=== PATIENT | male | born 1975 | race Caucasian/White ===

== ENCOUNTER 2021-03-02 22:23 | Inpatient (IN) | payer OTHER ==
[~2021-03-02] VITALS: Ht 167.6 cm; Wt 77.6 kg
[2021-03-02 23:45] VITALS: BP 115/69
--- NOTE | 2021-03-02 23:45 | NUR ---
CHARGE COORDINATORCOOK MANAGER NOTE PATIENT IS A DIRECT ADMIT FROM [facility]. PATIENT AMBULATED TO BED WITH NONPRODUCTIVE COUGH AND SOB, GAIT IS STEADY. A/OX4. ON OXYGEN 4L/MIN VIA NASAL CANNULA O2 SAT 96%. RESPIRATIONS ARE EVEN AND UNLABORED. PATIENT IS EXPERIENCING NONPRODUCTIVE COUGH. NO C/O PAIN AT THIS TIME. EXTERNAL TELE READS SINUS RHYTHM HR 85. IN NO APPARENT DISTRESS. IV ACCESS IN LAC#20 PATENT AND SALINE LOCKED. INITIAL PHYSICAL ASSESSMENT COMPLETED AT THIS TIME. SKIN ASSESSMENT COMPLETED, SKIN INTACT. PATIENT DENIES SIGNIFICANT PAST MEDICAL HISTORY AND STATES DOES NOT TAKEN ANY HOME MEDS. BED IS LOW AND LOCKED, HOB ELEVATED IN SEMI FOWLERS, SIDE RIAL UPX2, HUYEN LIGHT WITHIN REACH, INFORMED ON USE. WILL CONTINUE TO MONITOR THROUGHOUT SHIFT.
[2021-03-03] MEDS ORDERED: ENOXAPARIN SODIUM 40 MG/0.4 ML DISP.SYRIN SQ SCH
[2021-03-03] MEDS ORDERED: ACETAMINOPHEN 325 MG TABLET PO PRN
[2021-03-03] MEDS ORDERED: MAGNESIUM HYDROXIDE 30 ML UDC PO PRN
[2021-03-03] MEDS ORDERED: MAG HYDROX/AL HYDROX/SIMETH 30 ML UDC PO PRN
[2021-03-03] MEDS ORDERED: CEFTRIAXONE 1 G in IV D5W 50 ML IV SCH (00:30)
[2021-03-03] MEDS ORDERED: AZITHROMYCIN 500 MG VIAL ONE (00:48)
--- NOTE | 2021-03-03 00:55 | NUR ---
RN NOTE INFORMED JULISA HURT CRATE ICER THAT PATIENT HAS ALREADY RECEIVED ROCEPHIN 1GM AT [facility] AT 1800, ORDER IS FOR Q24HR. CRATE ICER STATED TO FOLLOW Q24HR. [facility] CALLED AND INFORMED. TO CHANGE TO 1800.
[2021-03-03] MEDS ORDERED: BENZONATATE 100 MG CAPSULE PO PRN (01:00)
[2021-03-03] MEDS: AZITHROMYCIN 500 MG in IV D5W 250 ML IV SCH ×2 (01:01→23:40)
[2021-03-03 04:00] VITALS: BP 122/75
[2021-03-03] MEDS: ONDANSETRON HCL/PF 4 MG/2 ML VIAL IVP PRN (06:09)
--- NOTE | 2021-03-03 07:21 | NUR ---
RN NOTE PATIENT RESTING IN BED. A/OX4. ON OXYGEN 12L/MIN VIA NONREBREATHER, SATING 99%. PATIENT DID HAVE AN EPISODE OF DESATURATION WHEN AMBULATING TO THE BATHROOM WHICH INITIATED THE NONREBREATHER, TRIED TITRATING THROUGHOUT SHIFT BUT PATIENT HAD A COUGHING EPISODE AND HAD TO RE-UP THE OXYGEN. URINAL GIVEN TO PATIENT. NO C/O PAIN THROUGHOUT SHIFT. PATIENT DID HAVE AN EPISODE OF GREEN EMESIS, ZOFRAN GIVEN. TELE MONITOR READS SINUS RHYTHM. NO DISTRESS. IV ACCESS MAINTAINED IN LAC#20. BED REMAINS LOW AND LOCKED, HOB ELEVATED IN SEMI FOWLERS, SIDE RIAL UPX2, HUYEN LIGHT WITHIN REACH, . WILL ENDORSE TO ONCOMING SHIFT.
[2021-03-03 07:39] LABS: CALCIUM, SERUM 7.9 mg/dL (8.5-10.1); CREATININE 0.8 mg/dL (0.6-1.3); PHOSPHORUS 2.8 mg/dL (2.5-4.9); POTASSIUM 3.5 mmol/L (3.5-5.1)
[2021-03-03 07:40] LABS: ABG BASE EXCESS 0.8 mmol/L; ABG OXYGEN SATURATION 94.5 % (92.0-98.5); ABG PH 7.449 (7.350-7.450); ABG PO2 70.6 mmHg (75.0-100.0); MetHb 0.2 % (0.0-1.5); O2Hb 94.3 % (94.0-97.0); SITE, ABG Right Radial; VENT MODE, BG NON-REBREATHER
[2021-03-03 07:56] LABS: BASOPHILS % (AUTO) 0.3 % (0.0-2.0); EOSINOPHILS % (AUTO) 0.1 % (0.0-6.0); HEMATOCRIT 39 % (39-51); HEMOGLOBIN 13.1 g/dL (13.5-17.5); LYMPHOCYTES # (AUTO) 0.8 K/uL (0.8-4.8); LYMPHOCYTES % (AUTO) 20.5 % (20.0-44.0); MEAN CORPUSCULAR HGB CONC 34 g/dl (31.0-36.0); MEAN CORPUSCULAR VOLUME 91 fL (80-96); MONOCYTES # (AUTO) 0.6 K/uL (0.1-1.30); MONOCYTES % (AUTO) 14.3 % (2.0-12.0); NEUTROPHILS # (AUTO) 2.7 K/uL (1.8-8.9); NEUTROPHILS % (AUTO) 64.8 % (43.0-81.0); PLATELET COUNT (AUTO) 206 K/uL (150-450); RED BLOOD CELL COUNT(AUTO) 4.24 MIL/uL (4.5-6.0); WHITE BLOOD COUNT (AUTO) 4.1 K/uL (4.3-11.0)
[2021-03-03] MEDS: PANTOPRAZOLE 40 MG TABLET.DR PO SCH (08:44)
[2021-03-03] MEDS: ASCORBIC ACID 500 MG TABLET PO SCH (08:44)
[2021-03-03] MEDS: ZINC SULFATE 220 MG CAPSULE PO SCH (08:44)
[2021-03-03] MEDS: DEXAMETHASONE SOD PHOSPHATE 10 MG/ML VIAL IV SCH (08:44)
[2021-03-03] MEDS ORDERED: REMDESIVIR (CHARGED) 200 MG, *LOADING DOSE 1 EA in IV NS 0.9% 210 ML IV ONE (09:30)
[2021-03-03] MEDS: ENOXAPARIN SODIUM 40 MG/0.4 ML DISP.SYRIN SQ SCH ×2 (10:11→20:43)
[2021-03-03 11:46] LABS: ALANINE AMINOTRANSFERASE 36 U/L (12-78); ALBUMIN 2.6 g/dL (3.4-5.0); ALKALINE PHOSPHATASE 37 U/L (46-116); ASPARTATE AMINOTRANSFERASE 43 U/L (15-37); BILIRUBIN,DIRECT 0.1 mg/dL (0.0-0.2); BILIRUBIN,TOTAL 0.4 mg/dL (0.2-1.0); TOTAL PROTEIN, SERUM 6.7 g/dL (6.4-8.2)
[2021-03-03 13:35] LABS: FERRITIN 960 ng/mL (8-388)
[2021-03-03] MEDS: CEFTRIAXONE 1 G in IV D5W 50 ML IV SCH (18:06)
--- NOTE | 2021-03-03 19:50 | NUR ---
RN OPENING NOTES RECD PT IN BED, A/O X4, KAZAKH SPEAKING, UNDERSTANDS CHINESE ABLE TO MAKE NEEDS KNOWN. PT IS ON 10L OF SIMPLE MASK AT THIS TIME, NO SOB NOTED NO RESP DISTRESS. PT IS ON TELE MONITORING PRESENTS WITH NSR HR IN 80S. PT HAS IV LAC, FLUSHED, PT EXPLAINS HE IS AMBULATORY, BUT GIVEN PT HX ENDORSEMENT OF DESATURATING WHILE AMBULATING, EDUCATED PT ON RISKS AND BENEFITS TO STAYING IN BED FOR SAFETY. ENCOURAGED TO USE URINAL. EDUCATED PT ON USING CALL LIGHT FOR ASSISTANCE. PT VERBALIZES UNDERSTANDING. ALL NEEDS ATTENDED AT THIS TIME. PT DENIES PAIN. SAFETY MEASURES IN PLACE HOB ELEVATED. SIDE RAILS UP X2 BED LOCKED IN LOWEST POSITION WITH BED ALARM ON, CALL LIGHT WITHIN REACH. WILL CONT TO MONITOR THROUGHOUT SHIFT CLOSELY.
[2021-03-03 20:00] VITALS: BP 108/66
[2021-03-03] MEDS: REMDESIVIR (CHARGED) 100 MG in IV NS 0.9% 100 ML IV SCH (20:41)
--- NOTE | 2021-03-03 23:00 | NUR ---
RN NOTE PT NOTED TO BE ASLEEP, NO DISTRESS NOTED. PLACED ON 12L NRB PER RT, PT SATURATING 96% AT THIS TIME. TOLERATING WELL. WILL CONT TO CLOSELY MONITOR.
[2021-03-04] VITALS: BP 100/63
[2021-03-04 04:00] VITALS: BP 108/60
[2021-03-04 06:54] LABS: BASOPHILS % (AUTO) 0.1 % (0.0-2.0); HEMATOCRIT 39 % (39-51); HEMOGLOBIN 13.5 g/dL (13.5-17.5); LYMPHOCYTES # (AUTO) 0.9 K/uL (0.8-4.8); LYMPHOCYTES % (AUTO) 23.1 % (20.0-44.0); MEAN CORPUSCULAR HGB CONC 34 g/dl (31.0-36.0); MEAN CORPUSCULAR VOLUME 90 fL (80-96); MONOCYTES # (AUTO) 0.8 K/uL (0.1-1.30); MONOCYTES % (AUTO) 20.1 % (2.0-12.0); NEUTROPHILS # (AUTO) 2.1 K/uL (1.8-8.9); NEUTROPHILS % (AUTO) 56.7 % (43.0-81.0); PLATELET COUNT (AUTO) 275 K/uL (150-450); RED BLOOD CELL COUNT(AUTO) 4.37 MIL/uL (4.5-6.0); WHITE BLOOD COUNT (AUTO) 3.8 K/uL (4.3-11.0)
--- NOTE | 2021-03-04 07:04 | NUR ---
RN CLOSING NOTE PT IS ON 15L VIA NON REBREATHER MASK AT THIS TIME, NO DISTRESS NOTED, NO SOB. PT O2 SATURATION IS 92 AT THIS TIME. ALL NEEDS ATTENDED. ALL DUE MEDS GIVEN. PT DENIES PAIN. PT HR IS IN THE 70S AT THIS TIME. NSR. SAFETY MEASURES IN PLACE. HOB. ELEVATED. SIDE RAILS UP X2 BED LOCKED IN LOWEST POSITION. CALL LIGHT WITHIN, WILL ENDORSE TO DAY SHIFT RN, FOR CONTINUATION OF CARE.
[2021-03-04 07:19] LABS: ALBUMIN 2.6 g/dL (3.4-5.0); BILIRUBIN,DIRECT 0.1 mg/dL (0.0-0.2); BILIRUBIN,TOTAL 0.3 mg/dL (0.2-1.0); CALCIUM, SERUM 8.6 mg/dL (8.5-10.1); CREATININE 0.8 mg/dL (0.6-1.3); POTASSIUM 4.1 mmol/L (3.5-5.1); TOTAL PROTEIN, SERUM 6.9 g/dL (6.4-8.2)
[2021-03-04] MEDS: PANTOPRAZOLE 40 MG TABLET.DR PO SCH (07:45)
--- NOTE | 2021-03-04 07:52 | NUR ---
RN OPENING NOTES RECEIVED PATIENT IS ON BED SLEEPING EASILY AWAKEN BY NAME AND LIGHT TOUCH, ALERT AND ORIENTED X4. PATIENT IS ON 15L OXYGEN VIA NON REBREATHER MASK TOLERATING WELL. PATIENT IN NO APPARENT RESPIRATORY DISTRESS NOTED. NO COMPLAINED OF PAIN AT THIS TIME. WILL CONTINUE TO MONITOR.
[2021-03-04 08:00] VITALS: BP 108/69
[2021-03-04] MEDS: ASCORBIC ACID 500 MG TABLET PO SCH (08:13)
[2021-03-04] MEDS: ZINC SULFATE 220 MG CAPSULE PO SCH (08:13)
[2021-03-04] MEDS: DEXAMETHASONE SOD PHOSPHATE 10 MG/ML VIAL IV SCH (08:14)
[2021-03-04] MEDS: ONDANSETRON HCL/PF 4 MG/2 ML VIAL IVP PRN (08:27)
--- NOTE | 2021-03-04 08:30 | NUR ---
RN NOTES PATIENT COMPLAINED OF NAUSEA ZOFRAN 4MG IV WAS GIVEN WILL CONTINUE TO MONITOR.
[2021-03-04] MEDS: ENOXAPARIN SODIUM 40 MG/0.4 ML DISP.SYRIN SQ SCH ×2 (08:42→21:43)
--- NOTE | 2021-03-04 09:00 | NUR ---
RN NOTES PATIENT SA02 88% WITH DIFFICULTY BREATHING 15L OXYGEN VIA NON REBREATHER MASK CHANGED TO HIGH FLOW OXYGEN 40LPM 100% O2 BY MULTIMEDIA SERVICES MANAGER. LATEST SA02 97%. WILL CONTINUE TO MONITOR.
[2021-03-04 12:00] VITALS: BP 113/70
[2021-03-04 16:00] VITALS: BP 99/63
[2021-03-04] MEDS: CEFTRIAXONE 1 G in IV D5W 50 ML IV SCH (17:08)
--- NOTE | 2021-03-04 19:19 | NUR ---
TELE/RN CLOSING NOTES PATIENT IS ON BED SLEEPING EASILY AWAKEN BY NAME AND LIGHT TOUCH ALERT AND ORIENTED X4. PATIENT IS ON HIGH FLOW OXYGEN TOLERATING WELL. PATIENT IN NO APPARENT RESPIRATORY DISTRESS NOTED. NO COMPLAINED OF PAIN AT THIS TIME. TELE MONITOR READING SUNE RHYTHM 89 BPM. SEEN AND EXAMINED BY MD WITH ORDERS MADE AND CARRIED OUT. ALL DUE MEDICATIONS WAS GIVEN. IV ACCESS AT LEFT AC #20G PATENT AND INTACT. SAFETY PRECAUTION WAS IN PLACED. BED IN LOWEST POSITION AND LOCKED. SIDE RAILS UP X2. WILL ENDORSED TO ECONOMIST RESEARCH ASSISTANT FOR ANITA.
--- NOTE | 2021-03-04 19:54 | NUR ---
wood mechanist Opening Notes Patient was last seen sleeping in bed. Patient's alert and oriented x4. Patient's on high flow oxygen with no respiratory distress noted. Patient's connected to a tele monitor with no cardiac distress noted. Patient has a saline lock on her LAC G#20 which is intact, patent, and flushing well. Patient's in no acute distress at this time. Safety measures in place: Bed locked, side rails up x2, and call light within reach. Will continue to monitor the patient.
[2021-03-04 20:00] VITALS: BP 108/63
[2021-03-04] MEDS: REMDESIVIR (CHARGED) 100 MG in IV NS 0.9% 100 ML IV SCH (21:55)
[2021-03-04] MEDS: AZITHROMYCIN 500 MG in IV D5W 250 ML IV SCH (23:53)
[2021-03-05] VITALS: BP 106/71
[2021-03-05 04:00] VITALS: BP 110/68
--- NOTE | 2021-03-05 06:20 | NUR ---
DIRECTOR MEDICAL Notes Patient refused all AM labs to be drawn this morning. Risks of refusing labs to be drawn were explained to the patient.
--- NOTE | 2021-03-05 06:47 | NUR ---
heeler machine Closing Notes Patient was last seen awake in bed resting. Patient's alert and oriented x4. Patient's on high flow oxygen (40L/min) with no respiratory distress noted. Patient's connected to a tele monitor showing sinus rhythm with a heart rate of 77bpm. Patient has a saline lock on his LAC G#20 which is intact, patent, and flushing well. Patient's in no acute distress at this time. Safety measures in place: Bed locked, side rails up x2, and call light within reach. Will endorse care to the day shift nurse.
--- NOTE | 2021-03-05 07:05 | NUR ---
RN NOTE PATIENT AWAKE ALERT AND ORIENTED X4, STATED THAT HE WILL HAVE HIS BLOOD DRAWN FOR AM LAB AFTER BREAKFAST, LABORATORY MADE AWARE, ON HIGH FLOW AT 40% O2 SAT OF 100%, COVID PRECAUTION OBSERVED CONTINENT ON BOWEL AND BLADDER USES THE URINAL, ABLE TO MAKE NEEDS KNOWN, CALL LIGHT WITHIN REACH, BED WHEELS LOCK, BED ALARM ON, WILL CONTINUE TO MONITOR PATIENT. Addendum: 03/05/21 at 1248 by TARAS RODRIGUEZ RN ON TELE MONITOR SR HR OF 71.
[2021-03-05 08:00] VITALS: BP 111/69
[2021-03-05] MEDS: PANTOPRAZOLE 40 MG TABLET.DR PO SCH (08:10)
[2021-03-05 09:20] LABS: BASOPHILS % (AUTO) 0.1 % (0.0-2.0); EOSINOPHILS % (AUTO) 0.1 % (0.0-6.0); HEMATOCRIT 39 % (39-51); HEMOGLOBIN 13.4 g/dL (13.5-17.5); LYMPHOCYTES # (AUTO) 1.4 K/uL (0.8-4.8); MEAN CORPUSCULAR HGB CONC 34 g/dl (31.0-36.0); MEAN CORPUSCULAR VOLUME 89 fL (80-96); MONOCYTES # (AUTO) 0.7 K/uL (0.1-1.30); MONOCYTES % (AUTO) 9.2 % (2.0-12.0); NEUTROPHILS # (AUTO) 5.9 K/uL (1.8-8.9); NEUTROPHILS % (AUTO) 73.6 % (43.0-81.0); PLATELET COUNT (AUTO) 312 K/uL (150-450); RED BLOOD CELL COUNT(AUTO) 4.37 MIL/uL (4.5-6.0)
[2021-03-05] MEDS: ENOXAPARIN SODIUM 40 MG/0.4 ML DISP.SYRIN SQ SCH ×2 (09:42→22:17)
[2021-03-05] MEDS: DEXAMETHASONE SOD PHOSPHATE 10 MG/ML VIAL IV SCH (09:43)
[2021-03-05] MEDS: ASCORBIC ACID 500 MG TABLET PO SCH (09:43)
[2021-03-05] MEDS: ZINC SULFATE 220 MG CAPSULE PO SCH (09:43)
[2021-03-05 09:49] LABS: ALBUMIN 2.6 g/dL (3.4-5.0); BILIRUBIN,DIRECT 0.1 mg/dL (0.0-0.2); BILIRUBIN,TOTAL 0.4 mg/dL (0.2-1.0); CALCIUM, SERUM 8.3 mg/dL (8.5-10.1); CREATININE 0.8 mg/dL (0.6-1.3); POTASSIUM 3.5 mmol/L (3.5-5.1); TOTAL PROTEIN, SERUM 6.6 g/dL (6.4-8.2)
--- NOTE | 2021-03-05 11:30 | NUR ---
RN NOTE INCENTIVE SPIROMETER ORDERED BY MD, EXPLAINED THE USE AND HOW TO USE DEVICE, PATIENT UNDERSTANDS DEMONSTRATE HOW TO USE DEVICE.
[2021-03-05 12:00] VITALS: BP 112/70
[2021-03-05] MEDS ORDERED: TOCILIZUMAB 400 MG in IV NS 0.9% 80 ML IV ONE (15:30)
[2021-03-05 16:00] VITALS: BP 110/68
[2021-03-05] MEDS ORDERED: diphenhydrAMINE HCL 50 MG/ML VIAL IV ONE (17:30)
[2021-03-05] MEDS ORDERED: ACETAMINOPHEN 325 MG TABLET PO ONE (17:30)
[2021-03-05] MEDS ORDERED: TOCILIZUMAB 600 MG in IV NS 0.9% 70 ML IV ONE (18:00)
--- NOTE | 2021-03-05 18:28 | NUR ---
RN NOTE PATIENT STARTED INFUSING ACTEMPRA IV, ADMISNISTERED TYLENOL AND BENADRYL ATLEAST 30 MINUTES BEFORE INFUSION, VTS TAKEN BP OF 111/64 , TEMP OF 98.1, HR OF 72, 02 OF 100%, 18 RR, NO SOB NOTED, NO PAIN COMPLAINS WILL CONTINUE TO MONITOR.
--- NOTE | 2021-03-05 18:35 | NUR ---
RN NOTE PATIENT STARTED INFUSING ACTEMPRA IV, A VTS TAKEN BP OF 105/61 , TEMP OF 98.1, HR OF 75, 02 OF 100%, 18 RR, NO SOB NOTED, NO PAIN COMPLAINS, NO ASE NOTED WILL CONTINUE TO MONITOR.
--- NOTE | 2021-03-05 19:24 | NUR ---
RN NOTE PATIENT STARTED INFUSING ACTEMPRA IV, A VTS TAKEN BP OF 112/61 , TEMP OF 98.1, HR OF 75, 02 OF 100%, 19 RR, NO SOB NOTED, NO PAIN COMPLAINS, NO ASE NOTED WILL CONTINUE TO MONITOR.
--- NOTE | 2021-03-05 19:25 | NUR ---
RN NOTE PATIENT AWAKE ALERT AND ORIENTED X4, STATED THAT HE WILL HAVE HIS BLOOD DRAWN FOR AM LAB AFTER BREAKFAST, LABORATORY MADE AWARE, ON HIGH FLOW AT 40% O2 SAT OF 100%, COVID PRECAUTION OBSERVED CONTINENT ON BOWEL AND BLADDER USES THE URINAL, ACTEMRA IV RUNNING AT THIS TIME NO ASE NOTED PATIENT TOLERATED WELL, PATIENT ROCEPHIN UNABLE TO ADMINISTER ON TIME DUE TO ACTEMRA ADMINISTRATION PER PHARMACY UNABLE TO ADMINISTER WITH ANY OTHER MEDICATION, ABLE TO MAKE NEEDS KNOWN, CALL LIGHT WITHIN REACH, BED WHEELS LOCK, BED ALARM ON, WILL CONTINUE TO MONITOR PATIENT. WILL ENDORSE TO NOC SHIFT.
[2021-03-05] MEDS: CEFTRIAXONE 1 G in IV D5W 50 ML IV SCH (19:33)
[2021-03-05 20:00] VITALS: BP 105/63
[2021-03-05] MEDS: REMDESIVIR (CHARGED) 100 MG in IV NS 0.9% 100 ML IV SCH (22:07)
[2021-03-06] VITALS: BP 109/64
[2021-03-06] MEDS: AZITHROMYCIN 500 MG in IV D5W 250 ML IV SCH (01:02)
[2021-03-06 04:00] VITALS: BP 114/76
--- NOTE | 2021-03-06 04:16 | NUR ---
RN notes Received patient in bed comfortably resting with no distress noted. On 40lpm O2 via high flow nasal cannula tolerating well. Alert and oriented, able to verbalize needs. Anxious, agitated and easily gets angry. No complaint of pain or discomfort. Kept clean and dry. Will endorse to next shift for continuity of care.
[2021-03-06 07:06] LABS: BASOPHILS % (AUTO) 0.1 % (0.0-2.0); EOSINOPHILS % (AUTO) 0.1 % (0.0-6.0); HEMATOCRIT 40 % (39-51); HEMOGLOBIN 13.5 g/dL (13.5-17.5); LYMPHOCYTES # (AUTO) 1.2 K/uL (0.8-4.8); LYMPHOCYTES % (AUTO) 20.9 % (20.0-44.0); MEAN CORPUSCULAR HGB CONC 34 g/dl (31.0-36.0); MEAN CORPUSCULAR VOLUME 89 fL (80-96); MONOCYTES # (AUTO) 0.8 K/uL (0.1-1.30); MONOCYTES % (AUTO) 12.7 % (2.0-12.0); NEUTROPHILS # (AUTO) 3.9 K/uL (1.8-8.9); NEUTROPHILS % (AUTO) 66.2 % (43.0-81.0); PLATELET COUNT (AUTO) 349 K/uL (150-450); RED BLOOD CELL COUNT(AUTO) 4.45 MIL/uL (4.5-6.0); WHITE BLOOD COUNT (AUTO) 5.9 K/uL (4.3-11.0)
--- NOTE | 2021-03-06 07:22 | NUR ---
RN NOTE PATIENT AWAKE ALERT AND ORIENTED X4, BREATHUNG EVEN AND UNLABORED, AFEBRILE AT THIS TIME, ON HIGH FLOW AT 40% O2 SAT OF 100%, ON TELE MONITOR SR WITH HR OF 77, IV ON RIGHT AC PATENT INFUSING WELL, COVID PRECAUTION OBSERVED CONTINENT ON BOWEL AND BLADDER USES THE URINAL, ABLE TO MAKE NEEDS KNOWN, CALL LIGHT WITHIN REACH, BED WHEELS LOCK, BED ALARM ON, WILL CONTINUE TO MONITOR PATIENT.
[2021-03-06 07:53] LABS: ALBUMIN 2.6 g/dL (3.4-5.0); BILIRUBIN,DIRECT 0.1 mg/dL (0.0-0.2); BILIRUBIN,TOTAL 0.4 mg/dL (0.2-1.0); CALCIUM, SERUM 8.3 mg/dL (8.5-10.1); CREATININE 0.8 mg/dL (0.6-1.3); POTASSIUM 3.9 mmol/L (3.5-5.1); TOTAL PROTEIN, SERUM 6.9 g/dL (6.4-8.2)
[2021-03-06 08:00] VITALS: BP 107/69
[2021-03-06 08:25] LABS: C-REACTIVE PROTEIN 1.3 mg/dL (0.0-0.9)
[2021-03-06] MEDS: PANTOPRAZOLE 40 MG TABLET.DR PO SCH (08:26)
[2021-03-06] MEDS: ENOXAPARIN SODIUM 40 MG/0.4 ML DISP.SYRIN SQ SCH ×2 (08:26→22:30)
[2021-03-06] MEDS: DEXAMETHASONE SOD PHOSPHATE 10 MG/ML VIAL IV SCH (08:26)
[2021-03-06] MEDS: ASCORBIC ACID 500 MG TABLET PO SCH (08:27)
[2021-03-06] MEDS: ZINC SULFATE 220 MG CAPSULE PO SCH (08:27)
--- NOTE | 2021-03-06 11:14 | NUR ---
RN NOTE SEEN BY IVON YAÑEZ, AWARE OF PATIENT CURRENT CONDITION.
[2021-03-06 12:00] VITALS: BP 111/70
[2021-03-06] MEDS ORDERED: D5W IV SCH ×2 (14:30→15:00)
[2021-03-06] MEDS ORDERED: VORICONAZOLE IV SCH ×2 (14:30→15:00)
--- NOTE | 2021-03-06 14:30 | NUR ---
RN NOTE BED ALARM WENT OFF PATIENT OBSERVED GETTING OFF OF BED WITH O2 NC@ HIGH FLOW NOT CONNECTED, PATIENT VERBALIZED REMOVING IT TO AMBULATE TO THE RESTROOM TO VOID, PATIENT INSISTED OF NOT PUTTING ON O2, ASSISTED PATIENT BACK TO THE BED FROM THE RESTROOM, OBSERVED PATIENT O2 SAT OF 87% ON ROOM AIR AMBULATED WITH STEADY GAIE, CONNECTED PATIENT BACK TO O2 VIA NC HIGH FLOW RATE ORDERED PATIENT O2 SAT WENT UP TO 97%, BREATHING EVEN AND UNLABORED PATIENT ALERT AND ORIENTED X4 ABLE TO VERBALIZE NEEDS, BED ALARM TURN ON SAFETY MEASURES OBSERVED, WILL CONTINUE TO MONITOR.
[2021-03-06] MEDS: VORICONAZOLE 200 MG TABLET PO SCH ×2 (15:14→22:23)
[2021-03-06 16:00] VITALS: BP 108/63
--- NOTE | 2021-03-06 19:19 | NUR ---
RN NOTE PATIENT AWAKE ALERT AND ORIENTED X4, BREATHUNG EVEN AND UNLABORED, AFEBRILE AT THIS TIME, ON HIGH FLOW AT25% 25LPM O2 SAT OF 97%, ON TELE MONITOR SR WITH HR OF 77, IV ON RIGHT AC PATENT INFUSING WELL, COVID PRECAUTION OBSERVED CONTINENT ON BOWEL AND BLADDER USES THE URINAL, ABLE TO MAKE NEEDS KNOWN, SPUTUM SPECIMEN COLLECTED EARLIER, GOT A CALL FROM LABORATORY AROUND 1829 THAT SPECIMENT COLLECTED NOT ENOUGH, O2 SAT FOR PATIENT TO TAKE HOME FOR DISCHARGE IS AT BED SITE CALL LIGHT WITHIN REACH, BED WHEELS LOCK, BED ALARM ON, WILL CONTINUE TO MONITOR PATIENT.WILL ENDORSE TO NOC SHIFT. Addendum: 03/06/21 at 1924 by TARAS RODRIGUEZ RN O2 AT 55% @ 25LPM CT FLOW RATE
[2021-03-06] MEDS ORDERED: REMDESIVIR (CHARGED) 100 MG in IV NS 0.9% 100 ML IV SCH (19:30)
[2021-03-06 20:00] VITALS: BP 104/60
[2021-03-07] VITALS: BP 101/54
[2021-03-07 04:00] VITALS: BP 103/61
--- NOTE | 2021-03-07 04:36 | NUR ---
RN notes Awake in bed resting comfortably watching TV with no distress noted. Breathing even and unlabored. On room air tolerating well. Alert and oriented, ambulatory, able to verbalize needs. No complaint of pain or discomfort. Vital signs wnl. No significant change of condition. Will endorse to next shift for continuity of care. Addendum: 03/07/21 at 0440 by MELO GABRIEL RN RN notes Awake in bed resting comfortably watching TV with no distress noted. Breathing even and unlabored. On high flow t 30% O2 via nasal cannula, tolerating well. Alert and oriented, ambulatory, able to verbalize needs. No complaint of pain or discomfort. Vital signs wnl. No significant change of condition. Will endorse to next shift for continuity of care.
[2021-03-07 07:24] LABS: BASOPHILS % (AUTO) 0.1 % (0.0-2.0); HEMATOCRIT 40 % (39-51); HEMOGLOBIN 13.8 g/dL (13.5-17.5); LYMPHOCYTES # (AUTO) 1.4 K/uL (0.8-4.8); LYMPHOCYTES % (AUTO) 18.8 % (20.0-44.0); MEAN CORPUSCULAR HGB CONC 34 g/dl (31.0-36.0); MEAN CORPUSCULAR VOLUME 90 fL (80-96); MONOCYTES # (AUTO) 0.8 K/uL (0.1-1.30); MONOCYTES % (AUTO) 11.1 % (2.0-12.0); NEUTROPHILS # (AUTO) 5.1 K/uL (1.8-8.9); PLATELET COUNT (AUTO) 462 K/uL (150-450); RED BLOOD CELL COUNT(AUTO) 4.51 MIL/uL (4.5-6.0); WHITE BLOOD COUNT (AUTO) 7.3 K/uL (4.3-11.0)
--- NOTE | 2021-03-07 07:53 | NUR ---
RAISE DRILL OPERATOR OPENING NOTE RECEIVED PATIENT LYING IN BED, RESTING. EASY TO AROUSE - A/OX4. BREATHING EVEN AND UNLABORED. ON HIGH FLOW OXYGEN AT 30% - SAT OF 100%. ON TELE MONITOR - READS SR WITH HR OF 77. IV ACCESS TO RIGHT AC S/L COVID PRECAUTIONS IN PLACE. SAFETY MEASURES IN PLACE. CALL LIGHT WITHIN REACH. WILL CONTINUE TO MONITOR.
[2021-03-07 07:57] LABS: ALBUMIN 2.9 g/dL (3.4-5.0); BILIRUBIN,DIRECT 0.1 mg/dL (0.0-0.2); BILIRUBIN,TOTAL 0.5 mg/dL (0.2-1.0); CALCIUM, SERUM 8.7 mg/dL (8.5-10.1); POTASSIUM 4.1 mmol/L (3.5-5.1); TOTAL PROTEIN, SERUM 7.2 g/dL (6.4-8.2)
[2021-03-07 08:00] VITALS: BP 115/76
[2021-03-07] MEDS: PANTOPRAZOLE 40 MG TABLET.DR PO SCH (08:27)
[2021-03-07] MEDS: ASCORBIC ACID 500 MG TABLET PO SCH (08:34)
[2021-03-07] MEDS: VORICONAZOLE 200 MG TABLET PO SCH ×2 (08:34→21:46)
[2021-03-07] MEDS: ZINC SULFATE 220 MG CAPSULE PO SCH (08:34)
[2021-03-07] MEDS: DEXAMETHASONE SOD PHOSPHATE 10 MG/ML VIAL IV SCH (08:35)
[2021-03-07] MEDS: ENOXAPARIN SODIUM 40 MG/0.4 ML DISP.SYRIN SQ SCH ×2 (08:36→21:46)
[2021-03-07 08:47] LABS: CREATININE 0.9 mg/dL (0.6-1.3)
[2021-03-07 12:05] VITALS: BP 126/76
[2021-03-07 16:00] VITALS: BP 122/76
--- NOTE | 2021-03-07 16:45 | NUR ---
RT NOTE HFNC LEFT ON STANBY AT BED SIDE. PER MD ORDER PT PLACED ON NC. PT REFUSES NC ASKS TO BE LEFT ON RA. NC ON AT BED SIDE. PT APPEARS COMFORTABLE. SPO2 92% ON ROOM AIR. NO DISTRESS NOTED. RN NOTIFIED. Addendum: 03/07/21 at 1647 by MARY VANESSA RT Amended: Links added.
--- NOTE | 2021-03-07 18:37 | NUR ---
SAFETY DEPOSIT BOXES CUSTODIAN CLOSING NOTE PATIENT CURRENTLY LYING IN BED, AWAKE, WATCHING TV. A/OX4. STABLE ON ROOM AIR @ 90% - NO SOB OR DISTRESS/DISCOMFORT NOTED. PATIENT STATES NO PAIN AT THIS TIME. BREATHING EVEN AND UNLABORED. ON TELE MONITOR - READS SR WITH HR IN THE 70s. IV ACCESS TO RIGHT AC - S/L. COVID PRECAUTIONS IN PLACE. SAFETY MEASURES IN PLACE. CALL LIGHT WITHIN REACH. WILL ENDORSE TO FRUIT PRESS OPERATOR FOR ANITA.
--- NOTE | 2021-03-07 19:45 | NUR ---
RN NOTE RECEIVED PT IN BED, ALERT AND ORIENTED X4. ON O2 AT 4L. O2 SAT AT 94 %. DENIES ANY SOB OR PAIN. TELE MONITORING SHOWS SR. IV ON RAC PATENT AND INTACT, FLUSHES WELL. ALL SAFETY MEASURES IN PLACE PER PROTOCOL. WILL CONTINUE TO MONITOR.
[2021-03-07 20:00] VITALS: BP 116/73
[2021-03-08] VITALS: BP 104/65
[2021-03-08 04:00] VITALS: BP 106/63
--- NOTE | 2021-03-08 06:53 | NUR ---
RN NOTE PT SLEEPING, AROUSES EASILY. CONTINUE ON O2 AT 4L VIA NC. NO SIGNS OF DISTRESS NOTED, PT DENIES ANY SOB. PT ABLE TO MAKE NEEDS KNOWN. IV REMAIN PATENT AND INTACT. ALL NEEDS ATTENDED. SAFETY MEASURES MAINTAINED. WILL ENDORSE TO NEXT SHIFT NURSE FOR ANITA.
--- NOTE | 2021-03-08 07:20 | NUR ---
RN NOTE PATIENT OBSERVED IN BED, AWAKE ALERT AND ORIENTED X4, ABLE TO VERBALIZE NEEDS ON O2 @4LPM VIA NC O2 SAT OF 97%, BREATHING EVEN AND UNLABORED, ON TELEMONITOR SR OF 79 NO COMPLAINS OF PAIN AT THIS TIME, ON COVID PRECAUTION, PATIENT AMBULATORY CONTINENT ON BOWEL AND BLADDER USES THE URINAL, IV PATENT ON LEFT AC FLUSHING WELL. WILL CONTINUE TO MONITOR, BED WHEELS LOCK, SAFETY MEASURES OBSERVED, CALL LIGHT WITHIN REACH,
[2021-03-08 08:00] VITALS: BP 99/59
[2021-03-08] MEDS: VORICONAZOLE 200 MG TABLET PO SCH (08:58)
[2021-03-08] MEDS: ASCORBIC ACID 500 MG TABLET PO SCH (08:58)
[2021-03-08] MEDS: DEXAMETHASONE SOD PHOSPHATE 10 MG/ML VIAL IV SCH (08:58)
[2021-03-08] MEDS: ZINC SULFATE 220 MG CAPSULE PO SCH (08:58)
[2021-03-08] MEDS: PANTOPRAZOLE 40 MG TABLET.DR PO SCH (09:00)
[2021-03-08] MEDS: ENOXAPARIN SODIUM 40 MG/0.4 ML DISP.SYRIN SQ SCH (09:01)
[2021-03-08] MEDS ORDERED: ALBU18HF2 INH (10:08)
[2021-03-08] MEDS ORDERED: FLUT1BLS IH (10:08)
[2021-03-08] MEDS ORDERED: DEXA4TAB PO (10:08)
[2021-03-08 12:00] VITALS: BP 103/67
[2021-03-08 16:00] VITALS: BP 113/68
--- NOTE | 2021-03-08 17:31 | NUR ---
RN NOTE PATIENT ALERT AND ORIENTED X4, ABLE TO COMPREHEND, GAVE PATIENT DISCHARGE INSTRUCTION AND PROPER USE OF OXYGEN DEVICE, SHOWS UNDERSTANDING WITH RETURN DEMO, SPIROMETER DEVICE TAUGHT TO PATIENT, PATIENT COMPETENT ON RETURN DEMONSTRATION, INSTRUCTED PATIENT TO ISOLATE SELF FOR TWO WEEKS INSTRUCTED. Addendum: 03/08/21 at 1810 by TARAS RODRIGUEZ RN RN NOTE PATIENT ALERT AND ORIENTED X4, ABLE TO COMPREHEND, GAVE PATIENT DISCHARGE INSTRUCTION AND PROPER USE OF OXYGEN DEVICE, SHOWS UNDERSTANDING WITH RETURN DEMO, SPIROMETER DEVICE TAUGHT TO PATIENT, PATIENT COMPETENT ON RETURN DEMONSTRATION, INSTRUCTED PATIENT TO ISOLATE SELF FOR TWO WEEKS PATIENT POSITIVE FOR COVID, COVID PRECAUTION MUST BE OBSERVED INSTRUCTED
== END 2021-03-08 17:49 | disposition home or self-care (01) | DRG 871 ==
LOC: TELE1 23:35
PROVIDERS: ADMIT Nurse Practitioner Family; ATTEND Internal Medicine
PROC: XW033E5 Introduction of Remdesivir Anti-infective into Peripheral Vein, Percutaneous Approach, New Technology Group 5 (ICD-10-PCS; principal; 2021-03-03)
PROC: XW033H5 Introduction of Tocilizumab into Peripheral Vein, Percutaneous Approach, New Technology Group 5 (ICD-10-PCS; 2021-03-05)
DX: A41.89 Other specified sepsis (principal); U07.1 COVID-19; J12.82 Pneumonia due to coronavirus disease 2019; J96.01 Acute respiratory failure with hypoxia; J18.9 Pneumonia, unspecified organism; E87.1 Hypo-osmolality and hyponatremia; Z91.19 Patient's noncompliance with other medical treatment and regimen
CPT/HCPCS: 36415; 36600; 71045-TC; 80048-TC; 80061-TC; 80076-TC; 82728-TC; 82803-TC; 83605-TC; 83615-TC; 83735-TC; 84100-TC; 84484-TC; 85025-TC; 85378-TC; 85610-TC; 85730-TC; 86140-TC; 86480; 86803; 87081-TC; 87102-TC; 87806; 94760-TC; 94799-TC; G0378; J0456; J0696; J1100; J1200; J1650; J2405; J3262; J3465; J7030; J7050; J7060